=== PATIENT | female | born 1975 | race Asian ===

== ENCOUNTER 2017-06-22 01:30 | Inpatient (IN) | payer SELFPAY ==
[~2017-06-22] VITALS: Ht 177.8 cm; Wt 67.3 kg
[2017-06-22] VITALS (8 sets, daily range): BP systolic 86–106; BP diastolic 56–85
[2017-06-22] MEDS ORDERED: METHYLERGONOVINE 0.2 MG/ML AMP IM PRN ×2 (02:10→14:25)
[2017-06-22] MEDS ORDERED: PROMETHAZINE 25 MG/ML VIAL IVP PRN (02:10)
[2017-06-22] MEDS ORDERED: AMPICILLIN 2,000 MG in NACL 0.9% MINI-BAG PLUS 100 ML IV SCH (02:10)
[2017-06-22] MEDS ORDERED: NALBUPHINE HYDROCHLORIDE 10 MG/ML VIAL IVP PRN (02:10)
[2017-06-22] MEDS ORDERED: OXYTOCIN 10 UNITS/ML VIAL IM SCH (02:10)
[2017-06-22] MEDS ORDERED: TUBERCULIN 5 TU/0.1 ML VIAL ID ONE (02:10)
[2017-06-22] MEDS ORDERED: CARBOPROST 250 MCG/ML AMP IM PRN (02:10)
[2017-06-22 02:34] LABS: APPEARANCE,URINE SL CLOUDY (CLEAR); BILIRUBIN,URINE NEGATIVE (NEGATIVE); BLOOD, URINE 2+ (NEGATIVE); COLOR,URINE YELLOW (YELLOW); LEUKOCYTE ESTERASE ,URINE NEGATIVE (NEGATIVE); NITRITE, URINE NEGATIVE (NEGATIVE); UGLUCOSE NEGATIVE (NEGATIVE)
[2017-06-22] MEDS: TERBUTALINE 1 MG/ML VIAL SUBQ SCH ×2 (02:41→03:47)
[2017-06-22] MEDS ORDERED: BETAMETH ACET/BETAMETH NA PH 30 MG/5 ML VIAL IM ONE (02:41)
[2017-06-22] MEDS ORDERED: TERBUTALINE 1 MG/ML VIAL SUBQ ONE (02:41)
[2017-06-22] MEDS: LACTATED RINGERS 1,000 ML IV SCH ×2 (02:54→09:43)
[2017-06-22] MEDS ORDERED: AMPICILLIN 2,000 MG VIAL ONE ×2 (02:59→16:55)
[2017-06-22 03:02] LABS: ALBUMIN 2.5 g/dL (3.4-5.0); ANION GAP 11.4 (8-16); CARBON DIOXIDE 23.6 mmol/L (21-32); CREATININE 0.7 mg/dL (0.6-1.3); TOTAL BILIRUBIN 0.2 mg/dL (0.0-1.0)
[2017-06-22] MEDS ORDERED: FERR-252 PO (03:39)
[2017-06-22] MEDS ORDERED: CALC500T2 PO (03:39)
[2017-06-22] MEDS ORDERED: PREN-546 PO (03:39)
[2017-06-22] MEDS ORDERED: INFLUENZA VIRUS VACCINE QUAD 0.5 ML SYR IMVAC SCH (03:45)
[2017-06-22 04:11] LABS: RBC,URINE 11-20 (MOD) /HPF (0-5); WBC,URINE 0-5 (RARE) /HPF (0-5)
[2017-06-22 04:11] LABS: HEMATOCRIT 35.2 % (36-48); HEMOGLOBIN 11.6 g/dL (12.0-16.0); MEAN CORPUSCULAR HEMOGLOBIN 29 pg (27-31); MEAN CORPUSCULAR HGB CONC 33 g/dL (33-37); MEAN CORPUSCULAR VOLUME 88 fL (80-94); PLATELET COUNT (AUTO) 286 K/uL (140-450); RED BLOOD CELL COUNT(AUTO) 3.99 MIL/uL (4.20-5.40); RED CELL DISTRIBUTION WIDTH 12.4 % (11.6-13.7); WHITE BLOOD COUNT (AUTO) 9.9 K/uL (4.8-10.8)
[2017-06-22 04:12] LABS: LYMPHOCYTES % (MANUAL) 15 % (20-46); MONOCYTES % (MANUAL) 5 % (5-12)
[2017-06-22] MEDS ORDERED: AMPICILLIN 1,000 MG VIAL ONE ×2 (06:13→10:46)
[2017-06-22] MEDS: AMPICILLIN 1,000 MG in NACL 0.9% MINI-BAG PLUS 50 ML IV SCH ×2 (06:29→10:39)
--- NOTE | 2017-06-22 08:57 | NUR ---
PATIENT HAS BEEN SCREENED AND CATEGORIZED LOW NUTRITION RISK. PATIENT WILL BE SEEN WITHIN 7 DAYS OF ADMISSION. 06/28/[address]
[2017-06-22] MEDS ORDERED: BETAMETH ACET/BETAMETH NA PH 30 MG/5 ML VIAL IM SCH (09:00)
[2017-06-22] MEDS ORDERED: BUPIVACAINE 0.125%/NS PREMIX 250 ML ONE (09:51)
[2017-06-22] MEDS ORDERED: BUPIVACAINE 0.125%/NS PREMIX 250 ML EPI SCH (10:05)
[2017-06-22] MEDS ORDERED: OXYTOCIN 20 UNITS in LACTATED RINGERS 1,000 ML IV SCH (11:00)
[2017-06-22] MEDS ORDERED: OXYTOCIN 10 UNITS/ML VIAL ONE (11:12)
[2017-06-22] MEDS ORDERED: MEASLES, MUMPS, AND RUBELLA 1 VIAL SQVAC PRN (14:25)
[2017-06-22] MEDS ORDERED: TEMAZEPAM 15 MG CAP PO PRN (14:25)
[2017-06-22] MEDS ORDERED: HYDROcodone/APAP 5/325 MG 1 TAB TAB PO PRN (14:25)
[2017-06-22] MEDS ORDERED: BENZOCAINE/MENTHOL 20%-0.5% 60 GM CAN TP PRN (14:25)
[2017-06-22] MEDS ORDERED: IBUPROFEN 800 MG TAB PO PRN (14:25)
[2017-06-22] MEDS ORDERED: oxyCODONE/APAP 5/325 MG 1 TAB TAB PO PRN (14:25)
[2017-06-22] MEDS ORDERED: OXYTOCIN 10 UNITS/ML VIAL IM PRN (14:25)
[2017-06-22] MEDS ORDERED: MISOPROSTOL 100 MCG TAB ONE (15:03)
[2017-06-22] MEDS ORDERED: METHYLERGONOVINE 0.2 MG/ML AMP ONE ×2 (15:03→15:49)
[2017-06-22] MEDS ORDERED: HETASTARCH 6% 500 ML IV SCH (15:25)
[2017-06-22] MEDS ORDERED: HETASTARCH 6% 500 ML IV ONE (15:28)
[2017-06-22] MEDS ORDERED: CARBOPROST 250 MCG/ML AMP IM ONE (15:49)
[2017-06-22 16:48] LABS: BASOPHILS # (AUTO) 0.1 K/uL (0.00-0.22); BASOPHILS % (AUTO) 0.2 % (0.0-2.0); EOSINOPHILS # (AUTO) 0.3 K/uL (0-0.4); EOSINOPHILS % (AUTO) 1.1 % (0.0-4.0); HEMATOCRIT 26.2 % (36-48); HEMOGLOBIN 8.6 g/dL (12.0-16.0); LYMPHOCYTES # (AUTO) 1.3 K/uL (2.5-16.5); MEAN CORPUSCULAR HEMOGLOBIN 29 pg (27-31); MEAN CORPUSCULAR HGB CONC 33 g/dL (33-37); MEAN CORPUSCULAR VOLUME 90 fL (80-94); MONOCYTES # (AUTO) 0.8 K/uL (0.8-1.0); MONOCYTES % (AUTO) 2.6 % (1.7-9.3); NEUTROPHILS % (AUTO) 92.1 % (42.2-75.2); PLATELET COUNT (AUTO) 322 K/uL (140-450); RED BLOOD CELL COUNT(AUTO) 2.92 MIL/uL (4.20-5.40)
--- NOTE | 2017-06-22 17:20 | NUR ---
TRANSFERRED IN FROM LD THIS 42 YR OLD EG[place]IAN FEMALE PER BED ACCPD BY RNS AND DR JASPREET KIRKPATRICK DUE TO VAGINAL BLEEDING POST VAG. DELIVERY. PT IS AWAKE. ABLE TO TRANSFER INDEPENDENTLY FROM PALE C/O FEELING COLD. PITOCIN DRIP INFUSING AT 125 ML/ HR VIA LEFT WRIST IV SITE. 0.9 1 LITER INFUSING AT LEFT HAND IV SITE WIDE OPEN PER DR. JASPREET KIRKPATRICK. NO VAGINAL BLEEDING NOTED AT THIS TIME.
[2017-06-22 17:29] LABS: WHITE BLOOD COUNT (AUTO) 31.5 K/uL (4.8-10.8)
[2017-06-22] MEDS ORDERED: GENTAMICIN PER PHARMACY MC PRN (17:30)
[2017-06-22] MEDS ORDERED: ACETAMINOPHEN 325 MG TAB PO PRN (17:50)
--- NOTE | 2017-06-22 17:50 | NUR ---
1 UNIT PRBC # [id number] B POSITIVE STARTED VIA LEFT HAND IV SITE.
[2017-06-22] MEDS ORDERED: GENTAMICIN 140 MG in DEXTROSE 5% 100 ML IV SCH (18:00)
[2017-06-22] MEDS ORDERED: CLINDAMYCIN 900 MG in DEXTROSE 5% 100 ML IV SCH (18:00)
[2017-06-22 18:07] LABS: PROTHROMBIN TIME 9.3 secs (10.8-13.4)
--- NOTE | 2017-06-22 18:15 | NUR ---
DR. BARRY HERE TO SEE AND EXAMINE PT. AWARE THAT PT HAS FEVER. WILL CONT. WITH BLOOD TRANSFUSION.
[2017-06-22] MEDS ORDERED: NACL 0.9% 1,000 ML IV SCH ×2 (18:20→18:45)
[2017-06-22] MEDS ORDERED: diphenhydrAMINE 50 MG/ML VIAL IVP SCH (18:32)
--- NOTE | 2017-06-22 18:32 | NUR ---
BENADRYL 25 MG IVP AND TYLENOL 650 MG PO GIVEN PER [address]. BARRY. PT. IS AWAKE, MOUTH VERY DRY. WATER GIVEN WITH PILLS. NO DIFFICULTY IN SWALLOWING NOTED.
[2017-06-22] MEDS: ACETAMINOPHEN 325 MG TAB PO PRN (18:56)
[2017-06-22] MEDS: GENTAMICIN IV SCH (19:25)
[2017-06-22] MEDS: NACL 0.9% IV SCH (19:25)
--- NOTE | 2017-06-22 19:40 | NUR ---
RECEIVED REPORT FROM AM SHIFT. PER AM SHIFT PT COME FROM LABOR AND DELIVERY. PT WAS HAVING BLEEDING. PT IS LYING ON BED. SKIN LOOK PALE. PT ALERT ORIENTED. ICELANDIC SPEAKING ONLY. DENIES ANY PAIN AT THIS TIME. PT ON ROOM AIR . NO S/S OF RESP.DISTRESS,NO SOB. RESP EVEN UN LABOR. IV TO LEFT HAND NO 20 GAUGE AND NO 18 TO LEFT WRIST INTACT WELL. PACK RED BLOOD BAG NO1 RUNNING ORDER. PITOCIN RUNNING AT 125 ML/HR. NS BOLUS LAS BAG STILL ON GOING. ABD/FUNDUS SOFT . SMALL SMEAR BLOOD NOTED ON THE PADS. V/S BP 97/62,P 116 SPO2 99%.GENTLE CARE GIVEN CONT TO MONITOR PT CLOSELY.
--- NOTE | 2017-06-22 19:50 | NUR ---
BLOOD TRANSFUSION FINISHED, HR [address] ST NO UNTOWARD REACTIONS NOTED. REPORT GIVEN TO SIA AZEVEDO RN.
[2017-06-22] MEDS: NACL 0.9% 1,000 ML IV SCH (20:00)
--- NOTE | 2017-06-22 20:15 | NUR ---
PER AM SHIFT. PER TO DO CBC AFTER 1 HOUR BLOOD TRANSFUSION DONE. ORDER WAS PLACED. SUE SOTO CALLED AND UPDATED THE STATUS OF PT. ALSO REQUEST TO DO CBC AFTER 1 HOUR BLOOD TRANSFUSION DONE. PER TO D/C THE ORDER AND JUST TO DO CBC IN AM AT 6 AM. ORDER WAS D/C PER MD REQUEST. MD ALSO ORDER TO GIVE 1 MORE PACK RED BLOOD TRANSFUSION.ORDER WAS CARRIED OUT. ORDER WAS STOP DUE TO DUPLICATE. MD ALREADY ENTER THE SAME ORDER PREVIOUSLY.
[2017-06-22] MEDS: OXYTOCIN 20 UNITS in LACTATED RINGERS 1,000 ML IV SCH (20:23)
[2017-06-22] MEDS: AMPICILLIN 2,000 MG in NACL 0.9% 100 ML IV SCH ×2 (20:24→23:57)
[2017-06-22] MEDS: CLINDAMYCIN 900 MG in NACL 0.9% 100 ML IV SCH (20:25)
[2017-06-22] MEDS ORDERED: DOCUSATE SOD/SENNA 50/8.6 MG 1 TAB PO SCH (21:00)
--- NOTE | 2017-06-22 21:20 | NUR ---
NIGHT MEDS GIVEN RITU WELL.
[2017-06-22] MEDS ORDERED: DOCUSATE SOD/SENNA 50/8.6 MG 1 TAB ONE ×2 (21:47→22:06)
--- NOTE | 2017-06-22 22:00 | NUR ---
2ND BAG OF RED BLOOD CELL NO [id number] 07/18/2017 WAS STARTING AT 2200. BLOOD WAS VERIFIED WITH 2 LICENSE /RN. BLOOD BOUT 280 CC.
--- NOTE | 2017-06-22 22:30 | NUR ---
VERIFIED WITH DR KAYA ROGERS IF PT NEED FROZEN PLASMA OR PLATELET TRANSFUSION . PER NOT AT THIS TIME. ALSO UP DATE PT BP 95/60 AND HR 107.PER TO CONT PITOCIN ORDER.
[2017-06-22 22:46] LABS: APPEARANCE,URINE HAZY (CLEAR); BILIRUBIN,URINE NEGATIVE (NEGATIVE); BLOOD, URINE 3+ (NEGATIVE); COLOR,URINE YELLOW (YELLOW); LEUKOCYTE ESTERASE ,URINE NEGATIVE (NEGATIVE); NITRITE, URINE NEGATIVE (NEGATIVE); UGLUCOSE NEGATIVE (NEGATIVE)
[2017-06-22 23:12] LABS: RAPID PLASMA REAGIN NON-REACTIVE (Non Reactiv)
[2017-06-22 23:20] LABS: RBC,URINE >100 /HPF (0-5); WBC,URINE 0-5 (RARE) /HPF (0-5)
[2017-06-23] VITALS: BP 90/55
--- NOTE | 2017-06-23 00:25 | NUR ---
2ND BAG OF TRANSFUSION DONE. NO ALLERGIC REACTION NOTED AT THIS TIME.TURN/REPOSITION FOR COMFORT. NO BLEEDING NOTED.KEPT CLEAN AND DRY.
[2017-06-23] MEDS: ACETAMINOPHEN 325 MG TAB PO PRN (00:31)
--- NOTE | 2017-06-23 01:15 | NUR ---
THE NURSE FROM LABOR AND DELIVERY COMING ROUTINELY TO CHECK PT FUNDUS. NO S/S OF BLEEDING AT THIS TIME.
[2017-06-23 02:00] VITALS: BP 100/60
--- NOTE | 2017-06-23 02:00 | NUR ---
PT HAS SMALL BM X1.SOFT GREEN COLOR.GOOD PERIANAL CARE GIVEN.
[2017-06-23] MEDS: NACL 0.9% IV SCH ×2 (02:43→11:14)
[2017-06-23] MEDS: GENTAMICIN IV SCH ×2 (02:43→11:14)
[2017-06-23] MEDS: NACL 0.9% 1,000 ML IV SCH (03:30)
[2017-06-23 04:00] VITALS: BP 87/53
[2017-06-23] MEDS: OXYTOCIN 20 UNITS in LACTATED RINGERS 1,000 ML IV SCH (04:01)
--- NOTE | 2017-06-23 04:10 | NUR ---
PITOCIN AND NS BAG NOT CHANGE YET IV STILL RUNNING AND BAG STILL ABOUT 400 CC BOTH NS AND PITOCIN.
[2017-06-23] MEDS: CLINDAMYCIN 900 MG in NACL 0.9% 100 ML IV SCH (05:09)
[2017-06-23] MEDS: AMPICILLIN 2,000 MG in NACL 0.9% 100 ML IV SCH ×6 (05:10→23:16)
[2017-06-23 06:06] VITALS: BP 93/58
[2017-06-23 06:24] LABS: HEMATOCRIT 23.4 % (36-48); HEMOGLOBIN 7.7 g/dL (12.0-16.0); MEAN CORPUSCULAR HEMOGLOBIN 28 pg (27-31); MEAN CORPUSCULAR HGB CONC 33 g/dL (33-37); MEAN CORPUSCULAR VOLUME 87 fL (80-94); PLATELET COUNT (AUTO) 164 K/uL (140-450); RED CELL DISTRIBUTION WIDTH 14.5 % (11.6-13.7); WHITE BLOOD COUNT (AUTO) 19.2 K/uL (4.8-10.8)
[2017-06-23 06:35] LABS: CARBON DIOXIDE 23.2 mmol/L (21-32); CREATININE 0.8 mg/dL (0.6-1.3); POTASSIUM 4.2 mmol/L (3.5-5.1)
[2017-06-23 06:41] LABS: ALBUMIN 1.3 g/dL (3.4-5.0); BILIRUBIN,DIRECT 0.1 mg/dL (0.0-0.3); TOTAL BILIRUBIN 0.5 mg/dL (0.0-1.0)
--- NOTE | 2017-06-23 06:49 | NUR ---
NEW ORDER FROM DR.LEE ROGERS TO TRANSFER PT TO LABOR AND DELIVERY FLOOR. PT WAS TRANSFER AT 6:30 AM. TRANSFER BY HOSPITAL BED TO ROOM 103.PT IS ALERT, ORIENTED X4. NO S/S OF RESP DISTRESS, NO SOB. ON ROOM AIR. DENIES ANY PAIN. SR ON MONITOR.CONT ON IV HYDRATION NS AT 100 CC/HR AND IV ABTS ORDER. NO BLEEDING AT THIS TIME.SKIN WARM TO TOUCH. VAT CLEANER ALREADY DRAW BLOOD FOR THIS AM TEST.REPORT WAS GIVEN TO DWAYNE AVILES RN. MADE HER AWARE PT WAS HAVING BABY THEN BLEEDING,LOW BP AND HIGH HR AND ADMIT TO ICU. PT RECEIVING 2 UNITS PACK CELL. AND TOLERATED WELL. NO ALLERGIC REACTION NOTED. PT ONLY HAVE EYE GLASSES AND SHE WEARING IT.PT LOOK HAPPY WHEN SEE HER BABY AND FAMILY .
[2017-06-23 07:05] LABS: LYMPHOCYTES % (MANUAL) 11 % (20-46); MONOCYTES % (MANUAL) 5 % (5-12)
[2017-06-23 07:31] LABS: PROTHROMBIN TIME 10.4 secs (10.8-13.4)
[2017-06-23] MEDS: FERROUS SULFATE 325 MG TABEC PO SCH ×2 (13:19→17:49)
[2017-06-23] MEDS: CLINDAMYCIN 900 MG in DEXTROSE 5% 50 ML IV SCH ×2 (13:34→21:53)
[2017-06-23] MEDS ORDERED: AMPICILLIN 2,000 MG VIAL ONE ×3 (16:28→23:12)
[2017-06-23] MEDS: GENTAMICIN 100 MG in NACL 0.9% 100 ML IV SCH (19:05)
[2017-06-23] MEDS ORDERED: INFLUENZA VIRUS VACCINE QUAD 0.5 ML SYR IMVAC SCH (20:15)
[2017-06-24] MEDS: GENTAMICIN 100 MG in NACL 0.9% 100 ML IV SCH (02:15)
[2017-06-24] MEDS ORDERED: AMPICILLIN 2,000 MG VIAL ONE ×2 (03:12→08:22)
[2017-06-24] MEDS: AMPICILLIN 2,000 MG in NACL 0.9% 100 ML IV SCH ×2 (03:28→08:24)
[2017-06-24] MEDS: CLINDAMYCIN 900 MG in DEXTROSE 5% 50 ML IV SCH (04:33)
[2017-06-24] MEDS: FERROUS SULFATE 325 MG TABEC PO SCH (08:25)
[2017-06-24 09:04] LABS: BASOPHILS % (AUTO) 0.2 % (0.0-2.0); EOSINOPHILS # (AUTO) 0.1 K/uL (0-0.4); EOSINOPHILS % (AUTO) 0.3 % (0.0-4.0); LYMPHOCYTES # (AUTO) 2.1 K/uL (2.5-16.5); LYMPHOCYTES % (AUTO) 11.8 % (20.5-51.1); MEAN CORPUSCULAR HEMOGLOBIN 30 pg (27-31); MEAN CORPUSCULAR HGB CONC 35 g/dL (33-37); MEAN CORPUSCULAR VOLUME 85 fL (80-94); MONOCYTES # (AUTO) 0.4 K/uL (0.8-1.0); MONOCYTES % (AUTO) 2.3 % (1.7-9.3); NEUTROPHILS # (AUTO) 15.3 K/uL (1.8-7.7); NEUTROPHILS % (AUTO) 85.4 % (42.2-75.2); PLATELET COUNT (AUTO) 191 K/uL (140-450); RED BLOOD CELL COUNT(AUTO) 2.29 MIL/uL (4.20-5.40); RED CELL DISTRIBUTION WIDTH 14.7 % (11.6-13.7); WHITE BLOOD COUNT (AUTO) 17.9 K/uL (4.8-10.8)
[2017-06-24 09:41] LABS: ANION GAP 9.5 (8-16); CARBON DIOXIDE 27.1 mmol/L (21-32); CREATININE 0.7 mg/dL (0.6-1.3); POTASSIUM 3.6 mmol/L (3.5-5.1)
[2017-06-24 09:46] LABS: HEMOGLOBIN 6.8 g/dL (12.0-16.0)
[2017-06-24 09:47] LABS: HEMATOCRIT 19.4 % (36-48)
[2017-06-24] MEDS ORDERED: INFLUENZA VIRUS VACCINE QUAD 0.5 ML SYR IMVAC ONE (10:17)
== END 2017-06-24 12:30 | disposition home or self-care (01) | DRG 774 ==
LOC: MFCC 01:30 → MLD 08:48 → MIC 17:43 → MFCC 06-23 06:30
PROVIDERS: ADMIT Obstetrics & Gynecology; ATTEND Obstetrics & Gynecology
PROC: 10E0XZZ Delivery of Products of Conception, External Approach (ICD-10-PCS; principal; 2017-06-22)
PROC: 0HQ9XZZ Repair Perineum Skin, External Approach (ICD-10-PCS; 2017-06-22)
PROC: 00HU33Z Insertion of Infusion Device into Spinal Canal, Percutaneous Approach (ICD-10-PCS; 2017-06-22)
PROC: 3E0R3BZ Introduction of Anesthetic Agent into Spinal Canal, Percutaneous Approach (ICD-10-PCS; 2017-06-22)
PROC: 30233N1 Transfusion of Nonautologous Red Blood Cells into Peripheral Vein, Percutaneous Approach (ICD-10-PCS; 2017-06-22)
PROC: 3E0234Z Introduction of Serum, Toxoid and Vaccine into Muscle, Percutaneous Approach (ICD-10-PCS; 2017-06-24)
DX: O69.81X0 Labor and delivery complicated by cord around neck, without compression, not applicable or unspecified (principal); O16.5 Unspecified maternal hypertension, complicating the puerperium; O75.1 Shock during or following labor and delivery; O85 Puerperal sepsis; O90.4 Postpartum acute kidney failure; O72.1 Other immediate postpartum hemorrhage; E86.0 Dehydration; O99.285 Endocrine, nutritional and metabolic diseases complicating the puerperium; O70.0 First degree perineal laceration during delivery; Z37.0 Single live birth; Z3A.36 36 weeks gestation of pregnancy; Z23 Encounter for immunization
CPT/HCPCS: 36415; 51702; 59409; 71010; 80048; 80053; 80076; 80170; 81001; 83605; 85025; 85379; 85384; 85610; 85730; 86592; 86886; 86900; 86901; 86920; 87040; 87081; 90658; 90715; J0290; J0702; J1200; J1580; J2210; J2590; J3105; J3490; J7030; J7060; J7120; P9016; Q0092